=== PATIENT | male | born 1950 | race African-American/Black ===

== ENCOUNTER → 2018-03-16 | Day surgery (SDC) | payer OTHER ==
[2018-03-12 10:58] LABS: BASOPHILS # (AUTO) 0.1 (0.0-0.1); BASOPHILS % 0.7 % (0.0-1.0); EOSINOPHILS # (AUTO) 0.2 (0.0-0.4); EOSINOPHILS % 2.3 % (0.0-6.0); HEMOGLOBIN 15.8 g/dL (14.0-18.0); LYMPHOCYTES # (AUTO) 1.8 (1.0-3.2); LYMPHOCYTES % 24.3 % (18.0-39.1); MEAN CORPUSCULAR HGB CONC 35.9 g/dL (31-35); MEAN CORPUSCULAR VOLUME 89.1 fL (81-99); MONOCYTES # (AUTO) 0.7 (0.2-0.8); NEUTROPHILS # (AUTO) 4.7 (2.1-6.9); NEUTROPHILS % 62.9 % (38.7-80.0); PLATELET COUNT 255 x10e3/uL (140-360); RED BLOOD COUNT 4.94 x10e6/uL (4.3-5.7); RED CELL DISTRIBUTION WIDTH 12.1 % (11.7-14.4)
--- NOTE | 2018-03-12 11:44 | Diagnostic Imaging Report ---
PROCEDURE:CHEST 2 VIEWS TECHNIQUE:PA and lateral chest totaling 3 radiographs. INDICATION:Preoperative evaluation for cyst removal COMPARISON:None. FINDINGS: Bibasilar interstitial scar. Lungs otherwise clear. No pleural effusions. Normal heart size, mediastinal contour, and pulmonary vasculature. Intact skeleton. CONCLUSION: No acute abnormality. Dictated by: Yuan Lockhart M.D. on 03/12/2018 at 11:47 Electronically approved by: Yuan Lockhart M.D. on 03/12/2018 at 11:47
[2018-03-12 11:55] LABS: ALANINE AMINOTRANSFERASE 33 IU/L (0-55); ALBUMIN 4.3 g/dL (3.5-5.0); ALBUMIN/GLOBULIN RATIO 1.3 (0.8-2.0); ALKALINE PHOSPHATASE 74 IU/L (40-150); ANION GAP 16.3 mmol/L (8-16); BLOOD UREA NITROGEN 14 mg/dL (7-26); BUN/CREATININE RATIO 11 (6-25); CALCIUM 10.3 mg/dL (8.4-10.2); CARBON DIOXIDE 27 mmol/L (22-29); CHLORIDE 103 mmol/L (98-107); CREATININE, SERUM 1.33 mg/dL (0.72-1.25); EST GLOMERULAR FILTRATION RATE > 60 ML/MIN (60-); GLUCOSE 133 mg/dL (74-118); POTASSIUM 4.3 mmol/L (3.5-5.1); SODIUM 142 mmol/L (136-145)
[~2018-03-16] MED LIST: ALFUZOSIN HCL10 MG; ALLEGRA ALLERGY60 MG; AMLODIPINE BESY10 MG PO; CARTIA XT180 MG; DEXAMETHASONE SOD PHOS INJ 4 MG/ML VIAL ONE; FENTANYL CITRATE/PF 100MCG/2 ML INJ ONE; FINASTERIDE5 MG PO; KETOROLAC TROMETHAMINE 30 MG/ML VIAL ONE; LIDOCAINE HCL 2% LOCAL INJ 5 ML SDV VIAL INJ ONE; MIDAZOLAM HCL 2 MG/2 ML VIAL ONE; MONTELUKAST SOD10 MG PO; MULTIVITAMINS1 EAC7; NEOMYCIN/POLYMYX/BACITR OINT 0.9 GM PKT ONE; ONDANSETRON HCL INJ 2 MG/ML VIAL ONE; OSTEO BI-FLEX1 EAC2; PROPOFOL IV EMULSION 10 MG/ML 20 ML VIAL ONE; RAPAFLO8 MG; SEVOFLURANE INHAL SOLN 250 ML PEN BTL ONE; TYLENOL; TYLENOL WITH C1 EACH PO; XARELTO20 MG
--- NOTE | 2018-03-16 12:43 | Operative Report ---
DATE OF PROCEDURE: March 16, 2018 PREOPERATIVE DIAGNOSIS: Epidermal inclusion cyst of the scalp and skin tags of the neck. POSTOPERATIVE DIAGNOSIS: Epidermal inclusion cyst of the scalp and skin tags of the neck. PROCEDURE PERFORMED: Excision of epidermal inclusion cyst of the scalp and skin tags of the neck. ANESTHESIA: General. ESTIMATED BLOOD LOSS: Minimal. DRAINS: None. COMPLICATIONS: None. INDICATIONS AND FINDINGS: A 67-year-old male with longstanding history of cyst of the scalp, present for many years, now because of the increasing in size. INTRAOPERATIVE FINDINGS: The patient had a 3.5 cm epidermal inclusion cyst of the right temporal parietal area and multiple skin tags of both the right and left neck. DESCRIPTION OF PROCEDURE: With the patient lying on the operative table in the supine position after administration of general anesthesia, he was prepped and draped for excision of epidermal inclusion cyst of the right temporal parietal area. The area was shaved and the patient was prepped and draped. Then preemptive anesthesia was given 0.25% Marcaine with epinephrine and then an elliptical incision was made over the redundant skin of the cyst and the cystic was excised sharply along with a wedge of skin. Bleeding points were cauterized and the wound was closed in 2 layers of 2-0 Vicryl for the soft tissues and the skin was closed using a combination of 3-0 and 2-0 silk. After we did that then we prepped the neck, both right and left, and skin tags were infiltrated with 0.25% Marcaine with epinephrine with half Marcaine with epinephrine also and then excised and then the site was cauterized. Sterile dressing was applied. The patient tolerated the procedure well and taken to recovery room in stable condition. Job#: [id number] STEPHANIA
== END | disposition home or self-care (01) ==
LOC: OR 06:56
PROVIDERS: ATTEND Surgery
DX: L72.0 Epidermal cyst (principal); L91.8 Other hypertrophic disorders of the skin; I48.91 Unspecified atrial fibrillation; Z86.73 Personal history of transient ischemic attack (TIA), and cerebral infarction without residual deficits; G47.30 Sleep apnea, unspecified; I10 Essential (primary) hypertension; M06.9 Rheumatoid arthritis, unspecified; M19.90 Unspecified osteoarthritis, unspecified site; E11.9 Type 2 diabetes mellitus without complications; N20.0 Calculus of kidney; Z88.6 Allergy status to analgesic agent; Z88.5 Allergy status to narcotic agent; Z01.810 Encounter for preprocedural cardiovascular examination; Z01.812 Encounter for preprocedural laboratory examination; Z01.818 Encounter for other preprocedural examination; Z79.02 Long term (current) use of antithrombotics/antiplatelets; Z68.41 Body mass index [BMI] 40.0-44.9, adult
CPT/HCPCS: 11200; 11424; 12032; 36415; 71046; 80053; 85025; 88304; 93005; J1100; J1885; J2001; J2250; J2405